=== PATIENT | female | born 1945 | race Caucasian/White ===

== ENCOUNTER 2016-04-05 08:58 | Outpatient (CLI) | payer MEDICARE ==
[2016-04-05 10:26] LABS: ALT (SGPT) 10 U/L (0-55); AST (SGOT) 13 U/L (5-34); Alkaline Phosphatase 114 U/L (40-150); Anion Gap 13 mmol/L (10-20); BUN (Urea Nitrogen) 12 mg/dL (9.8-20.1); Bilirubin, Total 0.5 mg/dL (0.2-1.2); Calc. Creatinine Clearance 0 mL/min (70-130); Calcium 8.8 mg/dL (7.8-10.44); Carbon Dioxide 25 mmol/L (23-31); Chloride 104 mmol/L (98-107); Estimated GFR-MDRD 65; Globulin 2.5 g/dL (2.4-3.5); Protein, Total 6.3 g/dL (5.8-8.1)
--- NOTE | 2016-04-05 12:41 | ULT ---
ABDOMINAL SONOGRAM: Date: 04/05/16 HISTORY: Abnormal liver function tests. Abdominal pain. FINDINGS: The gallbladder has a normal appearance without evidence of stones. Common duct is 0.6 cm diameter. Liver is echogenic without focal mass or intrahepatic biliary dilatation. No free fluid is evident. The spleen, kidneys, and visualized portions of the abdominal aorta, IVC, and pancreas have a normal sonographic appearance. IMPRESSION: 1. No evidence of gallstones or biliary obstruction. 2. Hepatic steatosis. POS: [facility]
[2016-04-05 13:32] LABS: Bilirubin Negative (Negative); Blood, Urine Negative (Negative); Glucose, Urine (Dipstick) Negative (Negative); Ketone, Urine Negative (Negative); Nitrite Negative (Negative); Protein, Urine (Dipstick) Negative (Neg-Trace); Urobilinogen 0.2 mg/dL (0.2-1.0)
--- NOTE | 2016-04-05 22:42 | ECHO ---
ECHOCARDIOGRAM INDICATION: Edema and obstructive sleep apnea. MEASUREMENTS: (cm) Left atrium 3.7 Aortic root 3.2 Aortic valve opening 1.9 Interventricular septum 0.8 LV posterior wall 0.8 LV end diastolic dimension 4.1 LV end systolic dimension 2.6 Delta D 0.37 2-D echocardiography revealed normal left ventricular systolic function with ejection fraction of 50 -55%. Valvular structures were normal. Doppler and color Doppler revealed moderate tricuspid regurgitation with right ventricular pressure of 47 mm and mild mitral regurgitation. IMPRESSION: 1. Normal left ventricular systolic function. 2. Moderate tricuspid regurgitation. 3. Mild mitral regurgitation.
== END 2016-04-05 08:59 | disposition home or self-care (01) ==
LOC: NAV ULT 08:58
PROVIDERS: ATTEND Internal Medicine
DX: K76.9 Liver disease, unspecified (principal); R60.1 Generalized edema; G47.33 Obstructive sleep apnea (adult) (pediatric)
CPT/HCPCS: 36415; 76700; 76770; 80053; 81003; 83880; 93306

== ENCOUNTER 2017-12-18 13:51 | Outpatient (CLI) | payer MEDICARE ==
--- NOTE | 2017-12-18 15:35 | RAD ---
TWO VIEWS OF THE CHEST: COMPARISON: 03/03/2016. HISTORY: Cough and shortness of breath. FINDINGS: Two views of the chest show normal sized cardiomediastinal silhouette. There is no evidence of consol idation, mass, or pleural effusion. The bones are unremarkable. IMPRESSION: No evidence of acute cardiopulmonary disease. POS: [facility]
== END 2017-12-18 13:52 | disposition home or self-care (01) ==
LOC: NAV RAD 13:51
PROVIDERS: ATTEND Internal Medicine
DX: R05 Cough (principal)
CPT/HCPCS: 71046

== ENCOUNTER 2018-08-25 11:57 | Emergency (ER) | payer MEDICARE ==
--- NOTE | 2018-08-25 12:50 | RAD ---
XR Shoulder Lt 3 View STANDARD History: Shoulder pain Comparison: None. Findings: No acute fracture or malalignment. Mild degenerative disease left acromioclavicular joint. Subcortical cysts greater tuberosity supraspinatus footprint. Visualized ribs are intact. Impression: Degenerative changes. No acute abnormality
== END 2018-08-25 13:12 | disposition home or self-care (01) ==
LOC: NAV ERS 11:57
DX: M25.512 Pain in left shoulder (principal); F41.9 Anxiety disorder, unspecified; E03.9 Hypothyroidism, unspecified; E78.5 Hyperlipidemia, unspecified; Z79.899 Other long term (current) drug therapy

== ENCOUNTER 2019-03-12 13:02 | Outpatient (CLI) | payer MEDICARE ==
--- NOTE | 2019-03-12 13:36 | RAD ---
CHEST TWO VIEWS: HISTORY: Pleurodynia. COMPARISON: CTA chest from 10/22/2018. FINDINGS: Mild biapical pleural scarring. Tendon suture anchors of the left humeral head and right humeral head . The lungs are without focal confluent air space consolidation, pneumothorax or effusion. The cardiac silhouette and mediastinal contour are within normal limits. IMPRESSION: No acute intrathoracic abnormality. POS: [facility]
== END 2019-03-12 13:03 | disposition home or self-care (01) ==
LOC: NAV RAD 13:02
PROVIDERS: ATTEND Internal Medicine
DX: R07.81 Pleurodynia (principal)
CPT/HCPCS: 71046

== ENCOUNTER 2019-10-29 13:32 | Emergency (ER) | payer MEDICARE, OTHER ==
[~2019-10-29 13:32] MED LIST: Iopamidol 370 76% 100 ML VIAL ONE
[2019-10-29 14:23] LABS: #Basophils 0.1 thou/uL (0.0-0.2); #Eosinphils 0.1 thou/uL (0.0-0.7); #Lymphocytes 1.5 thou/uL (1.20-3.40); #Monocytes 0.4 thou/uL (0.11-0.59); #Neutrophils 6.3 thou/uL (1.40-6.50); %Basophils 0.9 % (0.0-1.0); %Eosinophils 0.9 % (0.0-10.0); %Lymphocytes 18.3 % (21.0-51.0); %Monocytes 4.5 % (0.0-10.0); %Neutrophils 75.4 % (42.0-75.0); Hemoglobin 13.3 g/dL (12.0-16.0); Mean Corpuscular HGB CONC 30.8 g/dL (32.0-36.0); Mean Corpuscular Hemoglobin 26.8 pg (27.0-31.0); Mean Corpuscular Volume 87.1 fL (78.0-98.0); Platelet Count 159 thou/uL (130-400); RBC Distribution Width 12.4 % (11.5-14.5); Red Blood Cell (RBC) Count 4.95 mill/uL (4.20-5.40); White Blood Cell (WBC) Count 8.3 thou/uL (4.8-10.8)
[2019-10-29 14:25] LABS: ALT (SGPT) 13 U/L (8-55); AST (SGOT) 16 U/L (5-34); Albumin 4.2 g/dL (3.4-4.8); Alkaline Phosphatase 129 U/L (40-110); Anion Gap 14 mmol/L (10-20); BUN (Urea Nitrogen) 12 mg/dL (9.8-20.1); Bilirubin, Total 0.6 mg/dL (0.2-1.2); Calc. Creatinine Clearance 0 mL/min (70-130); Calcium 9.1 mg/dL (7.8-10.44); Carbon Dioxide 25 mmol/L (23-31); Chloride 104 mmol/L (98-107); Estimated GFR-MDRD 66; Globulin 2.8 g/dL (2.4-3.5); Glucose 99 mg/dL (83-110); Lipase 18 U/L (8-78); Potassium 3.6 mmol/L (3.5-5.1); Sodium 139 mmol/L (136-145)
[2019-10-29 15:30] LABS: Large Platelets SLIGHT; MDiff Complete? YES; Mean Platelet Volume 12.7 fL (7.4-10.4); RBC Morphology Normal
[2019-10-29 15:52] LABS: Bilirubin Negative (Negative); Blood, Urine Negative (Negative); Clarity Clear (Clear); Glucose, Urine (Dipstick) Negative (Negative); Ketone, Urine Negative (Negative); Leukocyte Negative (Negative); Nitrite Negative (Negative); Protein, Urine (Dipstick) Negative (Neg-Trace); Specific Gravity, Urine 1.025 (1.005-1.030); Urobilinogen 0.2 mg/dL (Less than 2)
--- NOTE | 2019-10-29 16:37 | CT ---
CT abdomen and pelvis with IV and oral contrast HISTORY: Abdomen pain. FINDINGS: Small hiatal hernia and minimal gastroesophageal reflux evident. Lung bases are clear. No evidence of bowel obstruction or inflammation. Solid organs of the abdomen are intact. No free air or free fluid. A lobular, somewhat irregular shaped homogeneous fluid density mass immediately superior to the left side of the urinary bladder is at the expected location of the left adnexa. It is now 4.9 cm x 2.6 cm x 2.0 cm greatest diameters, enlarging since the 05/24/2016 CT exam. IMPRESSION : No acute abnormalities are demonstrated to explain the patient's pain. Lobular cystic mass at the left adnexa has enlarged since the 2017 CT. Please consider MRI pelvis, wi thout and with gadolinium contrast, for better characterization. Small hiatal hernia.
== END 2019-10-29 17:30 | disposition home or self-care (01) ==
LOC: NAV ERS 13:32
DX: R10.11 Right upper quadrant pain (principal); R19.7 Diarrhea, unspecified; R19.00 Intra-abdominal and pelvic swelling, mass and lump, unspecified site; E03.9 Hypothyroidism, unspecified; E78.5 Hyperlipidemia, unspecified; E78.00 Pure hypercholesterolemia, unspecified; I10 Essential (primary) hypertension; F03.90 Unspecified dementia, unspecified severity, without behavioral disturbance, psychotic disturbance, mood disturbance, and anxiety; F41.9 Anxiety disorder, unspecified; F32.9 Major depressive disorder, single episode, unspecified; Z79.899 Other long term (current) drug therapy
CPT/HCPCS: 74177; 80053; 81003; 83690; 84484; 85025; 93005; Q9967

== ENCOUNTER 2020-03-03 14:47 | Outpatient (CLI) | payer MEDICARE ==
--- NOTE | 2020-03-03 14:58 | RAD ---
LEFT HIP TWO VIEWS: 03/03/20 HISTORY: Left hip pain status post fall. Prominent osteophytic changes along the lateral acetabulum. Joint space is not narrowed. There is no evidence of fracture. IMPRESSION: No evidence of fracture. POS: [facility]
== END 2020-03-03 14:48 | disposition home or self-care (01) ==
LOC: NAV RAD 14:47
PROVIDERS: ATTEND Nurse Practitioner Adult Health
DX: M25.552 Pain in left hip (principal); W18.30XA Fall on same level, unspecified, initial encounter

== ENCOUNTER 2020-09-16 18:22 | Emergency (ER) | payer BC, MEDICARE ==
[2020-09-16] MEDS ORDERED: Sodium Chloride 0.9% 100 ML ONE (18:35)
[2020-09-16] MEDS ORDERED: Promethazine HCl 25 MG/ML VIAL ONE (18:35)
[2020-09-16 18:39] LABS: #Lymphocytes 2.3 thou/uL (1.20-3.40); #Monocytes 0.5 thou/uL (0.11-0.59); #Neutrophils 7.9 thou/uL (1.40-6.50); %Basophils 0.4 % (0.0-1.0); %Eosinophils 0.4 % (0.0-10.0); %Lymphocytes 21.3 % (21.0-51.0); %Monocytes 4.5 % (0.0-10.0); %Neutrophils 73.4 % (42.0-75.0); Hemoglobin 14.9 g/dL (12.0-16.0); Mean Corpuscular HGB CONC 31.5 g/dL (32.0-36.0); Mean Corpuscular Volume 85.8 fL (78.0-98.0); Mean Platelet Volume 11.7 fL (7.4-10.4); Platelet Count 226 thou/uL (130-400); RBC Distribution Width 12.6 % (11.5-14.5); White Blood Cell (WBC) Count 10.7 thou/uL (4.8-10.8)
[2020-09-16 18:56] LABS: ALT (SGPT) 15 U/L (8-55); AST (SGOT) 18 U/L (5-34); Albumin 4.4 g/dL (3.4-4.8); Alkaline Phosphatase 158 U/L (40-110); Anion Gap 18 mmol/L (10-20); BUN (Urea Nitrogen) 17 mg/dL (9.8-20.1); Bilirubin, Total 1.5 mg/dL (0.2-1.2); Calc. Creatinine Clearance 0 mL/min (70-130); Carbon Dioxide 21 mmol/L (23-31); Chloride 105 mmol/L (98-107); Globulin 3.2 g/dL (2.4-3.5); Glucose 115 mg/dL (83-110); Lipase 25 U/L (8-78); Potassium 3.7 mmol/L (3.5-5.1); Protein, Total 7.6 g/dL (5.8-8.1); Sodium 140 mmol/L (136-145)
[2020-09-16] MEDS ORDERED: Sodium Chloride 0.9% 1,000 ML ONE (19:00)
[2020-09-16 21:23] LABS: Bilirubin Negative (Negative); Blood, Urine Negative (Negative); Glucose, Urine (Dipstick) Negative (Negative); Ketone, Urine 15 mg/dL (Negative); Leukocyte Small (Negative); Nitrite Negative (Negative); Protein, Urine (Dipstick) Trace mg/dL (Neg-Trace); Specific Gravity, Urine 1.015 (1.005-1.030); Urobilinogen 0.2 mg/dL (Less than 2)
[2020-09-16 21:24] LABS: Clarity Hazy (Clear)
[2020-09-16 21:29] LABS: Bacteria/HPF Rare-Few HPF (None Seen); Mucous/LPF 1+ LPF (<2+); Squamous Epithelial 0-3 HPF (0-3); WBC/HPF 0-3 HPF (0-3)
[2020-09-16 21:50] LABS: Lactic Acid 1.4 mmol/L (0.5-2.2)
== END 2020-09-16 23:28 | disposition home or self-care (01) ==
LOC: NAV ERS 18:22
DX: E86.0 Dehydration (principal); R11.2 Nausea with vomiting, unspecified; R53.1 Weakness; E03.9 Hypothyroidism, unspecified; E78.5 Hyperlipidemia, unspecified; E78.00 Pure hypercholesterolemia, unspecified; I10 Essential (primary) hypertension; Z79.82 Long term (current) use of aspirin; Z79.899 Other long term (current) drug therapy
CPT/HCPCS: 36415; 74177; 80053; 81003; 81015; 83605; 83690; 83735; 84443; 84484; 85025; 93005; 94760; 96365; J2550; J7050; Q9967

== ENCOUNTER 2020-09-20 15:28 | Emergency (ER) | payer MEDICARE ==
[2020-09-20 16:11] LABS: #Basophils 0.1 thou/uL (0.0-0.2); #Eosinphils 0.2 thou/uL (0.0-0.7); #Lymphocytes 2.3 thou/uL (1.20-3.40); #Monocytes 0.4 thou/uL (0.11-0.59); #Neutrophils 5.1 thou/uL (1.40-6.50); %Basophils 0.7 % (0.0-1.0); %Eosinophils 2.6 % (0.0-10.0); %Lymphocytes 28.5 % (21.0-51.0); %Monocytes 5.2 % (0.0-10.0); Mean Corpuscular HGB CONC 31.7 g/dL (32.0-36.0); Mean Corpuscular Hemoglobin 27.3 pg (27.0-31.0); Mean Corpuscular Volume 86.2 fL (78.0-98.0); Mean Platelet Volume 13.3 fL (7.4-10.4); Platelet Count 189 thou/uL (130-400); RBC Distribution Width 12.6 % (11.5-14.5); Red Blood Cell (RBC) Count 4.76 mill/uL (4.20-5.40); White Blood Cell (WBC) Count 8.1 thou/uL (4.8-10.8)
[2020-09-20 16:26] LABS: ALT (SGPT) 17 U/L (8-55); AST (SGOT) 20 U/L (5-34); Albumin 4.4 g/dL (3.4-4.8); Alkaline Phosphatase 157 U/L (40-110); Anion Gap 16 mmol/L (10-20); BUN (Urea Nitrogen) 18 mg/dL (9.8-20.1); Bilirubin, Total 0.6 mg/dL (0.2-1.2); Calc. Creatinine Clearance 0 mL/min (70-130); Calcium 9.6 mg/dL (7.8-10.44); Carbon Dioxide 23 mmol/L (23-31); Chloride 102 mmol/L (98-107); Globulin 3.1 g/dL (2.4-3.5); Glucose 101 mg/dL (83-110); Potassium 3.3 mmol/L (3.5-5.1); Protein, Total 7.5 g/dL (5.8-8.1); Sodium 138 mmol/L (136-145)
== END 2020-09-20 18:50 | disposition short-term general hospital (02) ==
LOC: NAV ERS 15:28
DX: R06.02 Shortness of breath (principal); E03.9 Hypothyroidism, unspecified; E78.5 Hyperlipidemia, unspecified; I10 Essential (primary) hypertension; Z86.73 Personal history of transient ischemic attack (TIA), and cerebral infarction without residual deficits; Z79.82 Long term (current) use of aspirin; Z79.899 Other long term (current) drug therapy
CPT/HCPCS: 71045; 80053; 84484; 85025; 93005